=== PATIENT | female | born 1950 | race Caucasian/White ===

== ENCOUNTER → 2016-08-06 | Outpatient (CLI) | payer OTHER | LOC: CIMAGING 07:12 | DX: Z12.31 Encounter for screening mammogram for malignant neoplasm of breast (principal); Z85.3 Personal history of malignant neoplasm of breast; Z90.11 Acquired absence of right breast and nipple | CPT/HCPCS: G0202-52 ==

== ENCOUNTER 2017-02-18 05:38 | Day surgery (SDC) | payer OTHER ==
--- NOTE | 2017-02-12 12:53 | PDGENHP ---
History & Physical Chief Complaint: deformity of breast reconstruction History of Present Illness: Sheri is a 66 year old white female who presents for revision of her right breast reconstruction Pertinent Past, Social, Family History: Non smoker. No fam hx of breast cancer Relevant Physical Exam: Implant malposition right breast with ripples and nipple papule deformity. No masses in either breast. No axillary LAD Cardiorespiratory Assessment: Lung mahmood clear. CV- RRR
[~2017-02-18 05:38] MED LIST: ceFAZolin 2 GM/SWFI 2 GM/20 ML SYR IVP ONE
[2017-02-18] MEDS ORDERED: ceFAZolin 2 GM/SWFI 2 GM/20 ML SYR IVP ONE (06:00)
[2017-02-18] MEDS ORDERED: LIDOCAINE 1% 2 ML INJ ID PRN (06:13)
[2017-02-18] MEDS ORDERED: LR 1,000 ML IV ONE (06:13)
[2017-02-18] MEDS ORDERED: BACITRACIN ZINC 14.2 GM OINTTUBE TP ONE (06:49)
[2017-02-18] MEDS ORDERED: BUPIVACAINE 0.25% 30 ML SDV ONE (06:49)
[2017-02-18] MEDS ORDERED: LIDOCAINE 1% 300 MG/30 ML SDV ONE ×2 (06:49→07:09)
[2017-02-18] MEDS ORDERED: ceFAZolin 1 GM/5 ML SYR ONE (06:50)
[2017-02-18] MEDS ORDERED: BACITRACIN 50,000 UNITS/10 ML SYR IRR ONE (06:50)
[2017-02-18] MEDS ORDERED: GENTAMICIN SULFATE 80 MG/2 ML VIAL ONE (06:50)
[2017-02-18] MEDS ORDERED: MIDAZOLAM 2 MG/2 ML VIAL IVP ONE (07:12)
--- NOTE | 2017-02-18 07:14 | PDANEPAE ---
ANE History of Present Illness breast capsule contractions ANE Past Medical History - Cardiovascular History Hx Hypertension: Yes Hx Arrhythmias: No Hx Chest Pain: No Hx Coronary Artery / Peripheral Vascular Disease: No Hx CHF / Valvular Disease: No Hx Palpitations: No Cardiovascular History Comment: hyperlipidemia. pcp monitors - Pulmonary History Hx COPD: No Hx Asthma/Reactive Airway Disease: No Hx Recent Upper Respiratory Infection: No Hx Oxygen in Use at Home: No Hx Sleep Apnea: No Sleep Apnea Screening Result - Last Documented: Negative - Neurologic History Hx Cerebrovascular Accident: No Hx Seizures: No Hx Dementia: No - Endocrine History Hx Diabetes: No - Renal History Hx Renal Disorders: No - Liver History Hx Hepatic Disorders: No - Neurological & Psychiatric Hx Hx Neurological and Psychiatric Disorders: No - Cancer History Hx Cancer: Yes Cancer History Comment: right breast cancer 2007 - Congenital Disorder History Hx Congenital Disorders: No - GI History Hx Gastrointestinal Disorders: No - Other Health History Other Health History: wears glasses - Chronic Pain History Chronic Pain: No - Surgical History Prior Surgeries: right reconstruction 2011 with Chidi. right mastectomy with immediate reconstruction. heidi NASCIMENTO Review of Systems Review of Systems: - Exercise capacity METS (RN): 4 METS ANE Patient History - Allergies Allergies/Adverse Reactions: No Known Allergies Allergy (Verified 02/12/17 15:37) - Home Medications Home Medications: Aspirin 81mg (*) 02/12/17 [Last Taken 02/05/17] Atorvastatin Calcium 02/12/17 [Last Taken 02/17/17 21:00] Herbals/Supplements -Info Only 02/12/17 [Last Taken 02/12/17] Lisinopril 02/12/17 [Last Taken 02/17/17 20:00] - NPO status NPO Since - Liquids (Date): 02/17/17 NPO Since - Liquids (Time): 21:00 NPO Since - Solids (Date): 02/17/17 NPO Since - Solids (Time): 18:00 - Smoking Hx Smoking Status: Former smoker - Family Anes Hx Family Hx Anesthesia Complications: none ANE Labs/Vital Signs - Vital Signs Blood Pressure: 155/94 Heart Rate: 65 Respiratory Rate: 16 O2 Sat (%): 96 Height: 164.2 cm Weight: 62.5 kg ANE Physical Exam - Airway Neck exam: FROM Mallampati Score: Class 1 Mouth exam: normal dental/mouth exam - Pulmonary Pulmonary: no respiratory distress - Cardiovascular Cardiovascular: regular rate and rhythym - ASA Status ASA Status: II ANE Anesthesia Plan Anesthesia Plan: GA w LMA
[2017-02-18] MEDS ORDERED: fentaNYL 100 MCG/2 ML INJ ONE ×3 (07:15→09:19)
[2017-02-18] MEDS ORDERED: HEPARIN 1000 UNIT/1 ML MDV ONE (07:16)
[2017-02-18] MEDS ORDERED: PROPOFOL 200 MG/20 ML VIAL ONE ×2 (07:16)
[2017-02-18] MEDS ORDERED: HEPARIN 10,000 UNIT/10 ML MDV ONE (07:19)
[2017-02-18] MEDS ORDERED: ONDANSETRON 4 MG/2 ML VIAL ONE (08:57)
[2017-02-18] MEDS ORDERED: DEXAMETHASONE 4 MG/ML VIAL ONE (08:57)
[2017-02-18] MEDS ORDERED: ONDANSETRON 4 MG/2 ML VIAL IVP PRN ×2 (09:03→09:04)
[2017-02-18] MEDS ORDERED: HYDROCODONE/APAP 5/325 TAB PO PRN (09:03)
[2017-02-18] MEDS ORDERED: PROMETHAZINE HCL 25 MG/ML INJ IVP PRN (09:04)
[2017-02-18] MEDS ORDERED: NALOXONE HCL 0.4 MG/ML INJ IVP PRN (09:04)
--- NOTE | 2017-02-18 09:19 | POSTANESTH ---
Post Anesthetic Evaluation Cardiovascular Status: Normal, Stable Respiratory Status: Normal, Stable Level of Consciousness/Mental Status: Can Participate in Eval Pain Control: Adequate, Prn Tx Ordered Nausea/Vomiting Control: Adequate, Prn Tx Ordered Complications Possibly Related to Anesthesia: None Noted
[2017-02-18] MEDS: fentaNYL 100 MCG/2 ML INJ IVP PRN ×2 (09:23→09:36)
[2017-02-18] MEDS ORDERED: HYDROmorphONE/DILAUDID 1 MG/ML INJ ONE (09:47)
[2017-02-18] MEDS: HYDROmorphONE/DILAUDID 1 MG/ML INJ IVP PRN ×4 (09:50→10:53)
--- NOTE | 2017-02-18 10:09 | GOP ---
[f rep st] OPERATIVE REPORT DATE OF OPERATION: 02/18/2017 SURGEON: Ferdinand Murillo Jr., MD RESIDENCY COORDINATOR: Eliot Seay CST. (Skilled surgical lead was necessary due to the technical co mplexity of the case and desire to minimize patient anesthesia time.) ANESTHESIA: The patient had a general inhalational anesthetic. PREOPERATIVE DIAGNOSIS: 1. Deformity of bilateral breast reconstruction following a right-sided mastectomy with implant bina nstruction. 2. History of right breast cancer. POSTOPERATIVE DIAGNOSIS: 1. Deformity of bilateral breast reconstruction following a right-sided mastectomy with implant bina nstruction. 2. History of right breast cancer. PROCEDURE PERFORMED: Revision of right breast reconstruction, as follows: 1. Complete extensive capsulectomy. 2. Removal of old reconstructive implant. 3. Tightening lateral breast capsule with capsulorrhaphy. 4. Placement of new, larger reconstructive implant. 5. Revision of right nipple areolar-complex reconstruction. 6. Bilateral breast reconstruction with superior pole volume augmentation using autologous fat graft ing. FINDINGS: ESTIMATED BLOOD LOSS: 20 cc. INDICATIONS: The patient is a 66-year-old white female who has undergone previous breast reconstruct ion following a right-sided mastectomy. She presented with deformity of the right breast, with sever e hyper-animation deformity, requesting options to increase symmetry and minimize the deformity. She was deemed an excellent candidate to have the above reconstruction performed and was taken the opera ting room for that purpose DESCRIPTION OF PROCEDURE: After risks and benefits of the procedure were explained to the patient, h ighlighting bleeding; infection; persistent or worsening asymmetry; implant malposition; capsular con tracture; contour irregularities from fat grafting or fat harvesting; nipple sensitivity changes, eit her temporary or permanent; poor cosmetic outcome; and need for revisional procedures, formal operati ve consent was obtained. She was taken to the operating room. After adequate inhalational general a nesthesia was provided, her premarked right breast incisions were injected with 1% lidocaine containi ng adrenaline. She was prepped and draped in normal sterile fashion. Procedure began by excising te thered skin and redundant areola from the right breast. Capsulotomy was performed, and her previous reconstructive implant was removed. The pocket was inspected. There was no evidence of irregulariti es other than a tight, constricted capsule with well adherent AlloDerm. Significant AlloDerm strippi ng was performed, with a near-complete capsulectomy and re-dissection of the pocket superiorly and me dially. The lateral capsule was excised, and the lateral pocket was tightened to medialize the impla nt. This was done using interrupted 2-0 PDS sutures, and the implant was then replaced to assure com plete correction prior to over-sewing the repair with a running 2-0 V-loc 180 suture. Now, with the patient in a seated position, volume determinations were made to match the contralateral side. I mahad cted on a smooth, round, full-profile 520 cc cohesive gel implant. She was placed back in the supine position. The previous implant was removed. The pocket was irrigated with normal saline. Meticulo us hemostasis was assured. The pocket was rinsed with triple antibiotic saline. Skin edges were wip ed down with triple antibiotic saline. Surgeon's gloves were changed, and using a minimal touch tech nique, the implant was rinsed in triple antibiotic and gently introduced into the pocket with 20 cc o f 0.25% plain Marcaine. The pectoralis major muscle, responsible for the hyper-animation, was stripp ed in multiple places to prevent persistent animation deformity. The pocket was then closed using in terrupted 3-0 Vicryl suture. The nipple reconstruction revision was then performed by rotating super ior mastectomy skin flap to create a round areola and remove redundant areolar tissue. This was inse t using everting deep dermal 3-0 Monocryl suture and a running subcuticular 400 V-loc 90 suture. The n again, with the patient in a seated position, areas for fat grafting were marked. The fat was harv ested from the anterior abdomen above the umbilicus. After tumescent solution had been infiltrated u sing a superwet technique, the fat was harvested using a Rio cannula and placed into Puregraft 250 cc fat lavage system. It was rinsed multiple times with warm lactated Ringer's containing heparin u ntil free of blood and oils. It was then placed into 10 cc Celbrush syringes and, through 2 mm acces s sites, was layered into areas requiring contour improvement in the upper pole of the breast. Appro ximately 120 cc purified fat was utilized in the right breast and 30 cc in the left. She had excelle nt size and shape symmetry at the completion the procedure. She had silver-impregnated dressings shannon austin over the right breast. She had bacitracin and Band-Aids applied to all the donor and grafting si sailaja. After they had been closed with 5-0 nylon, a TopiFoam abdominal binder with a lightly compressi ve bra were placed in the operating room. She was extubated in the OR and taken to recovery room adithya ke in stable condition. AUTOLOGOUS FAT GRAFTING: Left breast: 30 cc purified fat. Right breast: 120 cc purified fat. Rig ht breast implant: Lincoln Longo Inspira SRF 520 cc cohesive gel. No complications. /[id number]/MODL
[2017-02-18 10:13] VITALS: TEMP 97.3
[2017-02-18] MEDS ORDERED: HYDROCODONE/APAP 5/325 TAB ONE (10:50)
[2017-02-18 11:12] VITALS: BP 146/96; PULSE 96; RESP 14; O2SAT 94
[2017-02-18] MEDS ORDERED: KETOROLAC 15 MG/1 ML SDV IVP SCH (12:00)
== END 2017-02-18 11:56 | disposition home or self-care (01) ==
LOC: FSGY 05:38
PROVIDERS: ATTEND Specialist
PROC: 0HPT0JZ Removal of Synthetic Substitute from Right Breast, Open Approach (ICD-10-PCS; principal; 2017-02-18 07:15)
PROC: 0HRT0JZ Replacement of Right Breast with Synthetic Substitute, Open Approach (ICD-10-PCS; principal; 2017-02-18 07:15)
DX: T85.42XA Displacement of breast prosthesis and implant, initial encounter (principal); Z85.3 Personal history of malignant neoplasm of breast; F32.9 Major depressive disorder, single episode, unspecified; E78.5 Hyperlipidemia, unspecified; I10 Essential (primary) hypertension; M85.80 Other specified disorders of bone density and structure, unspecified site
CPT/HCPCS: C1789; J0171; J0690; J1100; J1170; J1644; J2250; J2405; J2704; J3010

== ENCOUNTER 2017-02-28 13:56 | Day surgery (SDC) | payer OTHER ==
--- NOTE | 2017-02-28 07:22 | PDHPUP ---
History & Physical Update H&P update statement: This history and physical update is based on an assessment of the patient which was completed after admission or registration (within 24 hours), but prior to the surgery/procedure. Right breast hematoma s/p breast reconstruction last week for exploration and evacuation. H&P changes: Right breast hematoma
[~2017-02-28 13:56] MED LIST changes: +DEXAMETHASONE 10 MG/ML VIAL IVP ONE
[2017-02-28] MEDS ORDERED: LR 1,000 ML IV ONE (14:16)
[2017-02-28] MEDS ORDERED: LIDOCAINE 1% 2 ML INJ ID PRN (14:16)
[2017-02-28] MEDS ORDERED: ceFAZolin 2 GM/SWFI 20 ML SYR IVP ONE (14:40)
[2017-02-28] MEDS ORDERED: DEXAMETHASONE 10 MG/ML VIAL ONE (14:40)
[2017-02-28 14:56] VITALS: PULSE 78
[2017-02-28] MEDS ORDERED: LIDOCAINE 1% 300 MG/30 ML SDV ONE (15:13)
[2017-02-28] MEDS ORDERED: GENTAMICIN SULFATE 80 MG/2 ML VIAL ONE (15:14)
[2017-02-28] MEDS ORDERED: BUPIVACAINE 0.25% 30 ML SDV ONE (15:14)
[2017-02-28] MEDS ORDERED: ceFAZolin 1 GM/5 ML SYR ONE ×4 (15:15)
[2017-02-28] MEDS ORDERED: BACITRACIN ZINC 14.2 GM OINTTUBE TP ONE (15:16)
[2017-02-28] MEDS ORDERED: BACITRACIN 50,000 UNITS/10 ML SYR IRR ONE (15:16)
[2017-02-28] MEDS ORDERED: MIDAZOLAM 2 MG/2 ML VIAL ONE (15:22)
--- NOTE | 2017-02-28 15:28 | PDANEPAE ---
ANE History of Present Illness evacuation of R breast hematoma ANE Past Medical History - Cardiovascular History Hx Hypertension: Yes Hx Arrhythmias: No Hx Chest Pain: No Hx Coronary Artery / Peripheral Vascular Disease: No Hx CHF / Valvular Disease: No Hx Palpitations: No Cardiovascular History Comment: hyperlipidemia. pcp monitors - Pulmonary History Hx COPD: No Hx Asthma/Reactive Airway Disease: No Hx Recent Upper Respiratory Infection: No Hx Oxygen in Use at Home: No Hx Sleep Apnea: No Sleep Apnea Screening Result - Last Documented: Negative - Neurologic History Hx Cerebrovascular Accident: No Hx Seizures: No Hx Dementia: No - Endocrine History Hx Diabetes: No Hypothyroid: No Hyperthyroid: No Obesity: no - Renal History Hx Renal Disorders: No - Liver History Hx Hepatic Disorders: No - Neurological & Psychiatric Hx Hx Neurological and Psychiatric Disorders: No - Cancer History Hx Cancer: Yes Cancer History Comment: right breast cancer 2007 - Congenital Disorder History Hx Congenital Disorders: No - GI History Hx Gastrointestinal Disorders: No - Other Health History Other Health History: R breast hematoma/bruising(painful). wears glasses - Chronic Pain History Chronic Pain: No - Surgical History Prior Surgeries: R breast reconstruction 02-18-17. R breast (re-do) reconstruction 2011 with Chidi. right mastectomy with immediate [id number]. appviraj ANE Review of Systems Review of Systems: - Exercise capacity METS (RN): 4 METS ANE Patient History - Allergies Allergies/Adverse Reactions: No Known Allergies Allergy (Verified 02/27/17 12:02) - Home Medications Home Medications: Aspirin 81mg (*) 02/12/17 [Last Taken 02/11/17 09:00] Atorvastatin Calcium 02/12/17 [Last Taken 02/27/17 20:30] Herbals/Supplements -Info Only 02/12/17 [Last Taken 02/12/17] Lisinopril 02/12/17 [Last Taken 02/27/17 20:30] - NPO status NPO Since - Liquids (Date): 02/27/17 NPO Since - Liquids (Time): 11:40 NPO Since - Solids (Date): 02/28/17 NPO Since - Solids (Time): 05:30 - Anes Hx Anes Hx: post operative nausea - Smoking Hx Smoking Status: Former smoker - Alcohol Use Alcohol Use: Occasionally (3 drinks per week) - Family Anes Hx Family Anes Hx: none Family Hx Anesthesia Complications: none ANE Labs/Vital Signs - Vital Signs Blood Pressure: 146/98 Heart Rate: 78 Respiratory Rate: 16 O2 Sat (%): 96 Height: 165.1 cm Weight: 61.235 kg ANE Physical Exam - Airway Neck exam: FROM Mallampati Score: Class 1 - Pulmonary Pulmonary: clear to auscultation - Cardiovascular Cardiovascular: regular rate and rhythym - ASA Status ASA Status: II ANE Anesthesia Plan Anesthesia Plan: GA w LMA
[2017-02-28] MEDS ORDERED: MIDAZOLAM 2 MG/2 ML VIAL IVP ONE (15:29)
[2017-02-28] MEDS ORDERED: fentaNYL 100 MCG/2 ML INJ ONE (15:31)
[2017-02-28] MEDS ORDERED: ONDANSETRON 4 MG/2 ML VIAL ONE (15:31)
[2017-02-28] MEDS ORDERED: DEXAMETHASONE 4 MG/ML VIAL ONE (15:31)
[2017-02-28] MEDS ORDERED: PROPOFOL 200 MG/20 ML VIAL ONE ×2 (15:32)
[2017-02-28 16:32] VITALS: TEMP 97.7
[2017-02-28] MEDS ORDERED: NALOXONE HCL 0.4 MG/ML INJ IVP PRN (17:21)
[2017-02-28 17:34] VITALS: BP 142/78; RESP 19; O2SAT 97
--- NOTE | 2017-02-28 20:43 | GOP ---
[f rep st] OPERATIVE REPORT DATE OF OPERATION: 02/28/2017 SURGEON: Ferdinand Murillo Jr., MD MAIL PROCESSOR: Eliot Seay, DEVELOPER PROGRAMMER ANALYST by surgeon request (skilled surgical services director was necessary due to the technical complexity of the case and the desire to minimize patient anesthesia time). ANESTHESIA: Patient had general inhalational anesthetic. ANESTHESIOLOGIST: Dr. Garrett Encarnacion. PREOPERATIVE DIAGNOSIS: Right breast hematoma status post breast reconstruction. POSTOPERATIVE DIAGNOSIS: Right breast hematoma status post breast reconstruction. PROCEDURE PERFORMED: Exploration of right breast with evacuation of right breast hematoma. FINDINGS: ESTIMATED BLOOD LOSS: 220 cc. INDICATIONS: The patient is a 66-year-old white female who underwent revision of a breast reconstruc tion approximately 1 week ago. She was noted to have significant slow increase in the size of the ri ght breast and was diagnosed with a venous hematoma. It was not expanding and under no significant p ressure. She was brought to the operating room for exploration and evacuation. DESCRIPTION OF PROCEDURE: After risks and benefits of procedure were explained the patient highlight ing rebleeding, infection, capsular contracture, asymmetry, wound healing issues, damage to vessels o r nerves or need for additional procedures, formal operative consent was obtained. She was taken the operating room. After adequate general anesthesia was provided by Dr. Encarnacion, her previous mastectom y incision was injected with lidocaine containing adrenaline. She was prepped and draped in normal s terile fashion. Procedure began by reopening the previous excision and tunneling down to the breast capsule. A capsulotomy was performed and old dark liquefied blood was removed. Approximately 220 cc of liquified hematoma was evacuated. The implant was removed and soaked in triple antibiotic saline . The pocket was irrigated with normal saline. No evidence of ongoing bleeding was noted. The pock et was then rinsed with triple antibiotic saline. The implant was then replaced. Skin edges wiped d own with triple antibiotic saline and then the pocket was closed using a running 3-0 Vicryl suture. Skin edges reapproximated using everting 3-0 Monocryl suture. Final skin eversion was carried out wi th surgical maycol. The patient had bacitracin, Xeroform, 4x4s, and a lightweight compressive dress ing placed. She was extubated in the operating room, taken recovery room awake in stable condition. COMPLICATIONS: No complications. DRAINS: No drains. /[id number]/MODL
== END 2017-02-28 17:40 | disposition home or self-care (01) ==
LOC: FSGY 13:56
PROVIDERS: ATTEND Specialist
PROC: 0H9T0ZX Drainage of Right Breast, Open Approach, Diagnostic (ICD-10-PCS; principal; 2017-02-28 15:30)
DX: L76.32 Postprocedural hematoma of skin and subcutaneous tissue following other procedure (principal); Z85.3 Personal history of malignant neoplasm of breast; Z90.11 Acquired absence of right breast and nipple; Z98.82 Breast implant status; F32.9 Major depressive disorder, single episode, unspecified; I10 Essential (primary) hypertension; E78.5 Hyperlipidemia, unspecified
CPT/HCPCS: J0171; J0690; J1100; J2250; J2405; J2704; J3010

== ENCOUNTER → 2017-08-07 | Outpatient (CLI) | payer OTHER | LOC: CIMAGING 07:16 | PROVIDERS: ATTEND Internal Medicine | DX: Z12.31 Encounter for screening mammogram for malignant neoplasm of breast (principal); Z85.3 Personal history of malignant neoplasm of breast; Z90.11 Acquired absence of right breast and nipple ==

== ENCOUNTER 2017-08-10 19:55 | Emergency (ER) | payer OTHER ==
--- NOTE | 2017-08-10 21:30 | EDPHY ---
H & P Time Seen by Provider: 08/10/17 21:28 HPI/ROS: Chief complaint. Wrist injury HPI. 66-year-old female with right wrist injury after fall. Trip and fall and landed on outstretched right hand. Patient is left handed. No other injuries. No previous injury to the right wrist. Complains of increased pain with range of motion and some swelling to the wrist. Seen at urgent care prior to coming to our department ROS Constitutional. no fever/chills, no weakness Eyes. no problems with vision ENT. no sore throat, no nasal drainage Cardiovascular. no chest pain Respiratory. no shortness of breath, no cough Abdominal. no abdominal pain, no nausea/vomiting, no diarrhea . no problems urinating MS. Right wrist pain Skin. no rash Lymph. no swollen glands Neuro. no headache, no dizziness, no difficulty walking or with speech Past Medical/Surgical History: Hypertension, dyslipidemia, breast cancer with right mastectomy Social History: , nonsmoker, no alcohol Smoking Status: Former smoker Physical Exam: General Appearance: Alert pleasant well-developed female moderate distress vital signs stable. Eyes: Pupils equal and round no pallor or injection. ENT, Mouth: Mucous membranes are moist. Respiratory: There are no retractions, lungs are clear to auscultation. Cardiovascular: Regular rate and rhythm. Gastrointestinal: Abdomen is soft and nontender, no masses, bowel sounds normal. Neurological: Awake and alert, sensory and motor exams grossly normal. Skin: Warm and dry, no rashes. Musculoskeletal: Neck is supple nontender. Extremities moderate swelling without significant deformity to the right wrist and distal right radius Psychiatric: Patient is oriented X 3, there is no agitation. Constitutional: Initial Vital Signs Temperature (C) 37.3 C 08/10/17 20:57 Heart Rate 78 08/10/17 20:57 Respiratory Rate 16 08/10/17 20:57 Blood Pressure 164/95 H 08/10/17 20:57 O2 Sat (%) 97 08/10/17 20:57 O2 Delivery Mode Room Air Allergies/Adverse Reactions: No Known Allergies Allergy (Verified 08/10/17 20:59) Home Medications: Medication Instructions Recorded Lisinopril 02/12/17 Hydrocodone/APAP 5/325 [[place] 1 each PO Q4-6PRN PRN #14 tab 08/10/17 5/325 (*)] Lipitor 08/10/17 Medical Decision Making - Diagnostics Imaging Results: Imaging Impressions Wrist X-Ray 08/10/17 00:00 Impression: Comminuted, displaced and angulated intra-articular fracture of the distal right radius.. Post reduction x-ray really does not show significant change Procedures: Hematoma block is performed by me The after anesthesia is obtained attempts at reduction Sugar-tong splint right forearm. Post splint application shows good anatomic position and distal motor vascular sensitivity to be intact ED Course/Re-evaluation: I consulted discussed the case with Dr. Denis, orthopedist who agrees with treatment plan The patient, her and I discussed imaging study results, treatment plan including recommendation for follow-up and further evaluation and likely need for surgery. They expressed understanding and agreement Differential Diagnosis: Closed right wrist fracture that is comminuted and intra-articular. Reduced in the emergency department and splinted. Departure - Departure Disposition: Home, Routine, Self-Care Clinical Impression: Fracture of right distal radius Qualifiers: Encounter type: initial encounter Fracture type: closed Fracture morphology: unspecified fracture morphology Qualified Code(s): S52.501A - Unspecified fracture of the lower end of right radius, initial encounter for closed fracture Condition: Good Instructions: Wrist Fracture in Adults (ED) Additional Instructions: Ice and elevation next 24-48 hours. Splint on until see orthopedist. Call orthopedist Saturday. Return over the weekend for worsening symptoms Tylenol or hydrocodone as needed for pain. Referrals: Dyan Lenz MD [Primary Care Provider] - As per Instructions Seferino Denis MD [Medical Doctor] - 2-3 days, call for appt. Prescriptions: Hydrocodone/APAP 5/325 [[place] 5/325 (*)] 1 each PO Q4-6PRN PRN #14 tab PRN Reason: Pain, Moderate
[2017-08-10] MEDS: HYDROCOD/APAP 5/325 PREPACK#6 BTL TAKEHOME ONE (23:15)
[2017-08-10 23:21] VITALS: BP 152/78
== END 2017-08-10 23:21 | disposition home or self-care (01) ==
LOC: SUPIMAGING 19:55 → EDSTATUS 20:56
PROC: 0PSHXZZ Reposition Right Radius, External Approach (ICD-10-PCS; principal; 2017-08-10)
DX: S52.571A Other intraarticular fracture of lower end of right radius, initial encounter for closed fracture (principal); I10 Essential (primary) hypertension; Z85.3 Personal history of malignant neoplasm of breast; Z87.891 Personal history of nicotine dependence; W19.XXXA Unspecified fall, initial encounter
CPT/HCPCS: 73110-PN

== ENCOUNTER 2017-08-15 07:06 | Day surgery (SDC) | payer OTHER ==
[2017-08-15] MEDS ORDERED: LR 1,000 ML IV ONE (07:49)
[2017-08-15] MEDS ORDERED: BUPIVACAINE 0.5% 30 ML SDV ONE (08:23)
[2017-08-15] MEDS ORDERED: MIDAZOLAM 2 MG/2 ML VIAL IVP ONE (08:33)
[2017-08-15] MEDS ORDERED: CLINDAMYCIN 900 MG/DEXTROSE 50 ML IV ONE (08:33)
--- NOTE | 2017-08-15 08:33 | PDGENHP ---
History & Physical Chief Complaint: Right distal radial fracture History of Present Illness: slip and fall injury 1 wk ago. Pertinent Past, Social, Family History: none important Relevant Physical Exam: right distal radial deformity and pain. Cardiorespiratory Assessment: normal heart and breath sounds
--- NOTE | 2017-08-15 08:33 | PDANEPAE ---
ANE History of Present Illness orif distal radius ANE Past Medical History - Cardiovascular History Hx Hypertension: Yes Hx Arrhythmias: No Hx Chest Pain: No Hx Coronary Artery / Peripheral Vascular Disease: No Hx CHF / Valvular Disease: No Hx Palpitations: No Cardiovascular History Comment: hyperlipidemia - Pulmonary History Hx COPD: No Hx Asthma/Reactive Airway Disease: No Hx Recent Upper Respiratory Infection: No Hx Oxygen in Use at Home: No Hx Sleep Apnea: No Sleep Apnea Screening Result - Last Documented: Negative - Neurologic History Hx Cerebrovascular Accident: No Hx Seizures: No Hx Dementia: No - Endocrine History Hx Diabetes: No - Renal History Hx Renal Disorders: No - Liver History Hx Hepatic Disorders: No - Neurological & Psychiatric Hx Hx Neurological and Psychiatric Disorders: No - Cancer History Hx Cancer: Yes Cancer History Comment: right breast cancer 2007 - Congenital Disorder History Hx Congenital Disorders: No - GI History Hx Gastrointestinal Disorders: No - Other Health History Other Health History: wears glasses - Chronic Pain History Chronic Pain: No - Surgical History Prior Surgeries: R BREAST HEMATOMA. R breast reconstruction revision 02-18-17. R breast (re-do)reconstruction 2011 with Chidi. right mastectomy with immediate [id number]. heidi NASCIMENTO Review of Systems Review of Systems: - Exercise capacity METS (RN): 5 METS ANE Patient History - Allergies Allergies/Adverse Reactions: hydrocodone Allergy (Intermediate, Verified 08/15/17 07:52) NAUSEA/VOMITING - Home Medications Home Medications: Lisinopril 02/12/17 [Last Taken 08/14/17] Aspirin 08/14/17 [Last Taken 08/10/17] Herbals/Supplements -Info Only 08/14/17 [Last Taken 08/10/17] Oxycodone HCl/Acetaminophen 08/14/17 [Last Taken 08/14/17] - NPO status NPO Since - Liquids (Date): 08/15/17 NPO Since - Liquids (Time): 21:00 NPO Since - Solids (Date): 08/14/17 NPO Since - Solids (Time): 18:00 - Anes Hx Anes Hx: post operative nausea and vomiting - Smoking Hx Smoking Status: Former smoker - Family Anes Hx Family Hx Anesthesia Complications: none ANE Labs/Vital Signs - Vital Signs Blood Pressure: 143/79 Heart Rate: 65 Respiratory Rate: 16 O2 Sat (%): 98 Height: 165.1 cm Weight: 62.596 kg ANE Physical Exam - Airway Mallampati Score: Class 2 Mouth exam: normal dental/mouth exam - Pulmonary Pulmonary: no respiratory distress - Cardiovascular Cardiovascular: regular rate and rhythym - ASA Status ASA Status: II ANE Anesthesia Plan Anesthesia Plan: GA w LMA
[2017-08-15] MEDS ORDERED: MIDAZOLAM 2 MG/2 ML VIAL ONE (08:35)
[2017-08-15] MEDS ORDERED: CLINDAMYCIN 900 MG/DEXTROSE/50 ML BAG IV ONE (08:37)
[2017-08-15] MEDS ORDERED: ONDANSETRON 4 MG/2 ML VIAL ONE (08:40)
[2017-08-15] MEDS ORDERED: KETOROLAC 30 MG/1 ML SDV ONE (08:40)
[2017-08-15] MEDS ORDERED: fentaNYL 100 MCG/2 ML INJ ONE ×2 (08:40→10:15)
[2017-08-15] MEDS ORDERED: PROPOFOL 200 MG/20 ML VIAL ONE (08:40)
[2017-08-15] MEDS ORDERED: DEXAMETHASONE 4 MG/ML VIAL ONE (08:40)
[2017-08-15] MEDS ORDERED: LIDOCAINE 2% 5 ML SDV ONE (08:40)
[2017-08-15] MEDS ORDERED: PHENYLEPHRINE HCL 100 MCG/ML SYR IVP PRN (09:46)
[2017-08-15] MEDS ORDERED: ALBUTEROL 3 ML DEYVIAL IH PRN (09:46)
[2017-08-15] MEDS ORDERED: oxyCODONE IR 5 MG TAB PO PRN (09:46)
[2017-08-15] MEDS ORDERED: ONDANSETRON 4 MG/2 ML VIAL IVP PRN (09:46)
[2017-08-15] MEDS ORDERED: NALOXONE HCL 0.4 MG/ML INJ IVP PRN (09:46)
--- NOTE | 2017-08-15 10:15 | POSTOPPROG ---
Post Op Note Date of Operation: 08/15/17 Surgeon: Angelito Cobos Chemical Librarian: NONE Anesthesiologist: Carlos Ivy Anesthesia: LMA Pre-op Diagnosis: right distal radial fracture Post-op Diagnosis: Same Indication: displaced fracture Procedure: ORIF right distal radial fracture Findings: fracture Inf/Abcess present in the surg proc area at time of surgery?: No Depth: Deep Incisional (Fascial) EBL: Minimal Total fluids administered: 600cc
[2017-08-15] MEDS: fentaNYL 100 MCG/2 ML INJ IVP PRN ×2 (10:17→10:24)
--- NOTE | 2017-08-15 10:34 | GOP ---
[f rep st] OPERATIVE REPORT DATE OF OPERATION: 08/15/2017 SURGEON: Angelito Cobos MD PREOPERATIVE DIAGNOSIS: Right distal radial intra-articular fracture. POSTOPERATIVE DIAGNOSIS: Right distal radial intra-articular fracture. PROCEDURE PERFORMED: Open reduction/internal fixation of right distal radial intra-articular fractur e. FINDINGS: INDICATIONS: This patient had a split going up into the isthmus between the scaphoid and lunate shanika a of the distal radius. Also had a couple of other intra-articular extensions at the ulnar corner of the distal radius and then a shaft fracture transversely at the junction of metaphysis and diaphysis which destabilized the end of the radius on the shaft. It was felt that open reduction and plate an d screw fixation was a good option for her. DESCRIPTION OF PROCEDURE: Under general anesthesia, the patient's right arm was prepped and draped i n the usual fashion, and with the arm tourniquet at 250 mmHg and with 0.5% plain Marcaine infiltrated in the operative area, the distal radius was approached through an L-shaped palmar incision. The sk in flap was elevated ulnarly, and the FCR and flexor pollicis longus were reflected radially, and fin arturo flexors and palmaris longus was reflected ulnarly. The pronator quadratus was elevated from the radial margin exposing the distal radius, and then under fluoroscopic control, the distal radial jossie cular fragments were reapproximated, and then the distal radius on the shaft was reduced and a Synthe s distal radial plate was tacked in place using 2 K-wires. Once it was assured that the fracture was lined up nicely and that the plate fit the distal radius well, screws were placed in the Synthes dis harsh radius plate, locking the fracture in corrected alignment. X-rays taken in the operating room sh owed anatomic alignment of the intra-articular portion, as well as the shaft portion, and had good so lid fixation with the plate and screws. The wound was irrigated with body temperature saline. Prona tor quadratus tacked back in place with 4-0 PDS. The fascia was closed also with 4-0 PDS, and 0.5% p ayesha Marcaine was instilled in the operative area and then skin closed with horizontal mattress sutur es of 5-0 Prolene. A bulky soft dressing was applied, followed by palmar-based fiberglass splint hel d in place with an Galindo bandage. She tolerated the procedure well. Tourniquet deflation resulted in immediate pinking of the digits. She was brought to the recovery area where detailed postoperative instructions were given prior to arjun patterson. A prescription for Percocet was provided. She had some Percocet at home and also a prescri ption for Cleocin provided to her preoperatively. She had been given 900 mg of clindamycin prior to commencement of surgery. Followup in the office for about a week postop for dressing and suture cris shannon and fiberglass cast application for 3 additional weeks. /[id number]/MODL
[2017-08-15] MEDS ORDERED: HYDROmorphONE/DILAUDID 2 MG/ML INJ ONE (10:37)
[2017-08-15] MEDS: HYDROmorphONE/DILAUDID 2 MG/ML INJ IVP PRN ×2 (10:38→11:16)
--- NOTE | 2017-08-15 12:24 | POSTANESTH ---
Post Anesthetic Evaluation Cardiovascular Status: Normal, Stable Respiratory Status: Normal, Stable Level of Consciousness/Mental Status: Alert and Oriented Pain Control: Inadeq, Add Tx Required (Pt reports continued high levels of pain despite Fentanyl and Dilaudid. Discussed risks and benefits of radial nerve block + lateral antebrachial cutaneous nerve field block. Pt desired to proceed with blocks. Surgeon agreed, and blocks placed PSR for POPC: Streile prep of supracondylar aspect of L arm. U/S guided placement of 21 G 80 mm Pajunk needle to radial nerve. 2 mL aliquots of 0.5% bupivacaine placed around nerve for a total of 9 mL. VSS. No complications. Field block of lateral antebrachial cutaneous nerve with 7 mL of 0.5% bupivacaine. No complications. U/S image printed and placed in pt chart.)
[2017-08-15 13:35] VITALS: BP 157/89
== END 2017-08-15 13:17 | disposition home or self-care (01) ==
LOC: FSGY 07:06
PROVIDERS: ATTEND Specialist
PROC: 0PSH04Z Reposition Right Radius with Internal Fixation Device, Open Approach (ICD-10-PCS; principal; 2017-08-15 08:30)
DX: S52.571A Other intraarticular fracture of lower end of right radius, initial encounter for closed fracture (principal); Z85.3 Personal history of malignant neoplasm of breast; Z90.11 Acquired absence of right breast and nipple; Z87.891 Personal history of nicotine dependence; W10.1XXA Fall (on)(from) sidewalk curb, initial encounter
CPT/HCPCS: 25609; C1769; C1713; J1100; J1170; J1885; J2250; J2405; J2704; J3010

== ENCOUNTER → 2018-04-09 | Outpatient (CLI) | payer OTHER | LOC: BRMIMAGING 10:32 | PROVIDERS: ATTEND Family Medicine | DX: Z13.820 Encounter for screening for osteoporosis (principal); M81.0 Age-related osteoporosis without current pathological fracture; Z78.0 Asymptomatic menopausal state; Z87.81 Personal history of (healed) traumatic fracture ==

== ENCOUNTER → 2018-06-09 | Outpatient (CLI) | payer OTHER | LOC: CIMAGING 14:33 | PROVIDERS: ATTEND Family Medicine | DX: M25.551 Pain in right hip (principal); M81.0 Age-related osteoporosis without current pathological fracture | CPT/HCPCS: 73502-PO ==

== ENCOUNTER → 2018-08-21 | Outpatient (CLI) | payer OTHER | LOC: CIMAGING 07:13 | PROVIDERS: ATTEND Family Medicine | DX: Z12.31 Encounter for screening mammogram for malignant neoplasm of breast (principal); Z85.3 Personal history of malignant neoplasm of breast; Z90.11 Acquired absence of right breast and nipple ==